=== PATIENT | female | born 1970 | race Caucasian/White ===

== ENCOUNTER → 2018-09-27 | Outpatient (CLI) | payer OTHER ==
[2018-09-27 10:33] LABS: BASOPHIL % 0.4 % (0-2); PLATELET COUNT 268 x10^3mcL (130-400)
[2018-09-27 10:37] LABS: RED CELL DISTRIBUTION WIDTH 16.1 % (11.5-14.5)
[2018-09-27 11:08] LABS: ALKALINE PHOSPHATASE 73 U/L (46-116); ALT/SGPT 31 U/L (14-59); AST/SGOT 22 U/L (15-37); BILIRUBIN TOTAL 0.51 mg/dL (0.20-1.00); CALCIUM 9.3 mg/dL (8.5-10.1); CARBON DIOXIDE 30.1 mmol/L (21-32); CHLORIDE SERUM 104 mmol/L (98-107); GFR1 > 60 mL/min; GLUCOSE SERUM 102 mg/dL (74-106); POTASSIUM SERUM 4.3 mmol/L (3.5-5.1); SODIUM SERUM 142 mmol/L (136-145); TOTAL PROTEIN, SERUM 8.2 g/dL (6.4-8.2); TRIGLYCERIDES 79 mg/dL (<150)
[2018-09-27 11:10] LABS: CHOLESTEROL 218 mg/dL (<200); CHOLESTEROL/HDL RATIO 2.8; HDL CHOLESTEROL 79 mg/dL (40-60)
== END | disposition home or self-care (01) ==
LOC: MA 09:08
PROC: BH02ZZZ Plain Radiography of Bilateral Breasts (ICD-10-PCS; principal; 2018-09-27)
DX: Z12.31 Encounter for screening mammogram for malignant neoplasm of breast (principal)
CPT/HCPCS: 77067

== ENCOUNTER 2019-12-04 15:19 | Emergency (ER) | payer OTHER ==
[~2019-12-04] VITALS: Ht 172.7 cm; Wt 119.7 kg
[2019-12-04 15:23] VITALS: Ht 172.7 cm; Wt 119.7 kg
[2019-12-04 16:24] VITALS: BP 162/93
== END 2019-12-04 16:24 | disposition home or self-care (01) ==
LOC: ED 15:19
DX: M72.2 Plantar fascial fibromatosis (principal); Z88.2 Allergy status to sulfonamides